=== PATIENT | female | born 1995 | race Caucasian/White ===

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

== ENCOUNTER 2017-05-13 18:04 | Emergency (ER) | payer OTHER, BC ==
[~2017-05-13 18:04] MED LIST changes: +NAPR500T2 PO; +TRAM50TA PO; -Z.0.NO CURRENT MEDS
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
[2017-05-13 20:20] LABS: HEMATOCRIT 30.1 % (35.0-46.0); MEAN CELL VOLUME 87.8 FL (80.0-100.0); MEAN CORPUSCULAR HEMOGLOBIN 29.2 PG (27.0-34.0); MEAN CORPUSCULAR HGB CONC 33.3 % (32.0-36.0); MEAN PLATELET VOLUME 7.9 FL (7.0-11.0); PLATELET COUNT 169 TH/MM3 (150-450); RED BLOOD COUNT 3.43 MIL/MM3 (4.00-5.30); WHITE BLOOD COUNT 9.3 TH/MM3 (4.0-11.0)
== END 2017-05-13 23:00 | disposition home or self-care (01) ==
LOC: HOBED 18:04
DX: O26.892 Other specified pregnancy related conditions, second trimester (principal); Z3A.25 25 weeks gestation of pregnancy
CPT/HCPCS: 83030; 85027; 86900; 86901; 99283